=== PATIENT | female | born 1985 | race Two or more races ===

== ENCOUNTER 2021-01-26 07:45 | Inpatient (IN) | payer OTHER ==
[~2021-01-26] VITALS: Ht 165.1 cm; Wt 59.0 kg
[2021-01-28] MEDS ORDERED: PANTOPRAZOLE SO40 MG (10:21)
[2021-01-28] MEDS ORDERED: PHENERGAN25 MG (10:22)
[2021-01-28] MEDS ORDERED: FERROUS SULFAT325 MG (10:22)
[2021-01-28] MEDS ORDERED: PEPCID AC20 MG (10:22)
[2021-01-31] MEDS ORDERED: IBUPROFEN800 MG PO (07:32)
== END 2021-01-31 09:03 | disposition home or self-care (01) | DRG 743 ==
LOC: OB/GYN 01-28 07:45 → O/R 01-28 07:46 → OB/GYN 01-28 11:15
PROVIDERS: ADMIT Specialist; ATTEND Specialist
PROC: 0UB90ZZ Excision of Uterus, Open Approach (ICD-10-PCS; principal; 2021-01-28 11:15)
DX: D25.9 Leiomyoma of uterus, unspecified (principal); N92.1 Excessive and frequent menstruation with irregular cycle; D50.0 Iron deficiency anemia secondary to blood loss (chronic); R10.2 Pelvic and perineal pain

== ENCOUNTER 2021-06-30 10:24 | Outpatient (CLI) | payer OTHER ==
[~2021-06-30 10:24] MED LIST: FERROUS SULFAT325 MG; IBUPROFEN800 MG PO; PANTOPRAZOLE SO40 MG; PEPCID AC20 MG; PHENERGAN25 MG
== END 2021-06-30 10:37 | disposition home or self-care (01) ==
LOC: MRI 10:24
PROVIDERS: ATTEND Orthopaedic Surgery
DX: M25.511 Pain in right shoulder (principal); M75.121 Complete rotator cuff tear or rupture of right shoulder, not specified as traumatic
CPT/HCPCS: 73221